=== PATIENT | female | born 1995 | race African-American/Black ===

== ENCOUNTER 2019-09-01 23:24 | Emergency (ER) | payer MEDICAID ==
[~2019-09-01] VITALS: Ht 172.7 cm; Wt 111.6 kg
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
--- NOTE | 2019-09-02 00:47 | NUR ---
PATIENT TO US
[2019-09-02 01:01] LABS: BASOPHILS # (AUTO) 0.14 x10^3/uL (0-0.1); BASOPHILS % (AUTO) 1 % (0-1); EOSINOPHILS # (AUTO) 0.05 x10^3/uL (0-0.4); EOSINOPHILS % (AUTO) 1 % (1-7); LYMPHOCYTES # (AUTO) 3.68 x10^3/uL (1-3.4); LYMPHOCYTES % (AUTO) 34 % (22-44); MD NO; MEAN CORPUSCULAR HEMOGLOBIN 28.3 pg (27.0-34.8); MEAN CORPUSCULAR HGB CONC 31.9 g/dL (32.4-35.8); MEAN CORPUSCULAR VOLUME 88.7 fL (80-100); MEAN PLATELET VOLUME 7.6 fL (7.4-10.4); MONOCYTES # (AUTO) 0.67 x10^3/uL (0.2-0.8); MONOCYTES % (AUTO) 6 % (2-9); NEUTROPHILS # (AUTO) 6.23 x10^3/uL (1.8-6.8); NEUTROPHILS % (AUTO) 58 % (42-75); PLATELET COUNT 452 x10^3/uL (130-400); RED BLOOD COUNT 4.44 x10^6/uL (3.82-5.3); RED CELL DISTRIBUTION WIDTH 14.9 % (9.6-15.2)
[2019-09-02 01:05] LABS: ALBUMIN 3.9 g/dL (3.4-5.0); ANION GAP 7 mmol/L (5-15); CALCIUM 9.1 mg/dL (8.5-10.1); CHLORIDE 108 mmol/L (98-107); CREATININE 0.87 mg/dL (0.55-1.02)
--- NOTE | 2019-09-02 01:22 | NUR ---
REPORT GIVEN TO JACKELINE BIANCHI. PLAN OF CARE DISCUSSED
--- NOTE | 2019-09-02 01:32 | NUR ---
Received report, assumed patient care. Patient resting comfortably, alert, oriented, awaiting ultrasound.
--- NOTE | 2019-09-02 01:54 | NUR ---
RN to bedside, patient behind curtain, already disconnected self from monitor. Vital signs stable per last check. Patient reports provider informed her of discharge. Awaiting paperwork.
[2019-09-02 02:03] VITALS: BP 114/84
== END 2019-09-02 02:04 | disposition home or self-care (01) ==
LOC: ED 09-02 01:09
DX: O20.0 Threatened abortion (principal)
CPT/HCPCS: 36415; 76801; 80048; 82040; 84702; 85025; 86901; 99284

== ENCOUNTER 2019-09-03 | Emergency (ER) | payer MEDICAID ==
[~2019-09-03] VITALS: Ht 172.7 cm; Wt 110.8 kg
--- NOTE | 2019-09-03 00:16 | NUR ---
Patient presents to ER c/o VB. Patient states she is ; her LMP was 06/15/19. She was here yesterday for spotting and had an US which showed approx 6 weeks . Today, she is having large amount of VB with clots. Patient is A1. Patient is in NAD. Respirations even and unlabored.
[2019-09-03] MEDS ORDERED: OXYcodone/APAP 5/325MG TABLET PO ONE (00:30)
[2019-09-03] MEDS ORDERED: OXYcodone/APAP 5/325MG TABLET ONE (00:59)
--- NOTE | 2019-09-03 01:16 | NUR ---
Medication admin per mar. Patient resting comfortably in [facility].
[2019-09-03 02:01] LABS: BASOPHILS # (AUTO) 0.05 x10^3/uL (0-0.1); BASOPHILS % (AUTO) 0 % (0-1); EOSINOPHILS # (AUTO) 0.12 x10^3/uL (0-0.4); EOSINOPHILS % (AUTO) 1 % (1-7); LYMPHOCYTES # (AUTO) 2.23 x10^3/uL (1-3.4); LYMPHOCYTES % (AUTO) 19 % (22-44); MD NO; MEAN CORPUSCULAR HGB CONC 32.5 g/dL (32.4-35.8); MEAN CORPUSCULAR VOLUME 89.3 fL (80-100); MEAN PLATELET VOLUME 7.6 fL (7.4-10.4); MONOCYTES # (AUTO) 0.79 x10^3/uL (0.2-0.8); MONOCYTES % (AUTO) 7 % (2-9); NEUTROPHILS # (AUTO) 8.87 x10^3/uL (1.8-6.8); NEUTROPHILS % (AUTO) 74 % (42-75); PLATELET COUNT 461 x10^3/uL (130-400); RED BLOOD COUNT 4.15 x10^6/uL (3.82-5.3); RED CELL DISTRIBUTION WIDTH 15.1 % (9.6-15.2)
[2019-09-03 02:13] LABS: ALANINE AMINOTRANSFERASE 16 U/L (12-78); ALBUMIN 3.5 g/dL (3.4-5.0); ANION GAP 8 mmol/L (5-15); CALCIUM 8.6 mg/dL (8.5-10.1); CHLORIDE 110 mmol/L (98-107); CREATININE 0.81 mg/dL (0.55-1.02)
[2019-09-03 02:29] LABS: ALKALINE PHOSPHATASE 56 U/L (45-117); BILIRUBIN,TOTAL 0.4 mg/dL (0.2-1.0); TOTAL PROTEIN 7.5 g/dL (6.4-8.2)
[2019-09-03 02:51] VITALS: BP 138/88
== END 2019-09-03 02:53 | disposition home or self-care (01) ==
LOC: ED 02:45
DX: O03.9 Complete or unspecified spontaneous abortion without complication (principal)
CPT/HCPCS: 36415; 80053; 84702; 85025; 99283

== ENCOUNTER 2020-04-24 08:52 | Inpatient (IN) | payer MEDICAID ==
[~2020-04-24] VITALS: Ht 172.7 cm; Wt 110.9 kg
[2020-04-24 09:06] VITALS: BP 122/76
[2020-04-24] MEDS ORDERED: PREN1TAB62 PO (09:12)
[2020-04-24] MEDS ORDERED: ASPI-515 PO (09:12)
[2020-04-24 09:19] LABS: MICROSCOPIC INDICATED
[2020-04-24 09:25] LABS: AMPHETAMINE SCREEN, URINE Negative (Negative); BARBITURATE SCREEN, URINE Negative (Negative); BENZODIAZEPINE SCREEN, URINE Negative (Negative); CANNABINOID SCREEN, URINE Positive (Negative); COCAINE SCREEN, URINE Negative (Negative); METHADONE SCREEN, URINE Negative (Negative); OPIATE SCREEN, URINE Negative (Negative)
[2020-04-24] MEDS: D5%-LACTATED RINGERS 1,000 ML IV SCH ×2 (10:43→18:30)
[2020-04-24 10:59] LABS: BASOPHILS # (AUTO) 0.05 x10^3/uL (0-0.1); BASOPHILS % (AUTO) 1 % (0-1); EOSINOPHILS # (AUTO) 0.07 x10^3/uL (0-0.4); EOSINOPHILS % (AUTO) 1 % (1-7); LYMPHOCYTES # (AUTO) 1.84 x10^3/uL (1-3.4); LYMPHOCYTES % (AUTO) 20 % (22-44); MD NO; MEAN CORPUSCULAR HEMOGLOBIN 28.4 pg (27.0-34.8); MEAN CORPUSCULAR HGB CONC 31.9 g/dL (32.4-35.8); MEAN CORPUSCULAR VOLUME 89.3 fL (80-100); MEAN PLATELET VOLUME 7.1 fL (7.4-10.4); MONOCYTES # (AUTO) 0.96 x10^3/uL (0.2-0.8); MONOCYTES % (AUTO) 10 % (2-9); NEUTROPHILS # (AUTO) 6.31 x10^3/uL (1.8-6.8); NEUTROPHILS % (AUTO) 68 % (42-75); PLATELET COUNT 290 x10^3/uL (130-400); RED BLOOD COUNT 3.94 x10^6/uL (3.82-5.3); RED CELL DISTRIBUTION WIDTH 15.4 % (9.6-15.2)
[2020-04-24 11:10] LABS: ALANINE AMINOTRANSFERASE 22 U/L (12-78); ALBUMIN 2.5 g/dL (3.4-5.0); ANION GAP 8 mmol/L (5-15); CALCIUM 8.7 mg/dL (8.5-10.1); CHLORIDE 114 mmol/L (98-107); CREATININE 0.68 mg/dL (0.55-1.02)
[2020-04-24 11:11] LABS: ALKALINE PHOSPHATASE 56 U/L (45-117); BILIRUBIN,TOTAL 0.2 mg/dL (0.2-1.0); TOTAL PROTEIN 6.5 g/dL (6.4-8.2)
[2020-04-24] MEDS ORDERED: OXYTOCIN 30U/ 0.9% NaCL 500ML 500 ML ONE (11:47)
[2020-04-24] MEDS ORDERED: OXYTOCIN 30U/ 0.9% NaCL 500ML 500 ML IV ONE ×2 (11:48→14:32)
[2020-04-24] MEDS ORDERED: OXYTOCIN 30U/ 0.9% NaCL 500ML 500 ML IV PRN ×2 (11:48→14:32)
[2020-04-24] MEDS ORDERED: MISOPROSTOL 200 MCG TABLET PR PRN (15:00)
[2020-04-24] MEDS: MISOPROSTOL 200 MCG TABLET VG SCH ×2 (15:00→21:00)
[2020-04-24] MEDS ORDERED: RHOGAM FROM BLOOD BANK 1 NOTE EA IM/IV PRN (15:00)
[2020-04-24] MEDS ORDERED: MISOPROSTOL 200 MCG TABLET ONE (17:26)
[2020-04-24] MEDS ORDERED: OXYcodone/APAP 5/325MG TABLET ONE (17:55)
[2020-04-24] MEDS ORDERED: FENTANYL PF 100 MCG/2ML IV PRN (18:00)
[2020-04-24] MEDS ORDERED: OXYcodone/APAP 10/325MG TABLET PO PRN (18:00)
[2020-04-24] MEDS ORDERED: OXYcodone/APAP 5/325MG TABLET PO PRN ×2 (18:00→22:00)
[2020-04-24] MEDS ORDERED: FENTANYL PF 100 MCG/2ML ONE ×2 (19:17→20:53)
[2020-04-24] MEDS: FENTANYL PF 100 MCG/2ML IVPush PRN ×2 (19:23→20:57)
[2020-04-24] MEDS ORDERED: MISOPROSTOL 100 MCG TABLET PO PRN (19:30)
[2020-04-24] MEDS ORDERED: MISOPROSTOL 100 MCG TABLET ONE (19:37)
[2020-04-24] MEDS ORDERED: OXYTOCIN 30U/ 0.9% NaCL 500ML 500 ML IV SCH ×2 (21:42)
[2020-04-24] MEDS ORDERED: OXYcodone IR 5MG TABLET PO PRN (22:00)
[2020-04-24] MEDS ORDERED: OXYTOCIN 10 UNITS/ML, 1ML IM PRN (22:00)
[2020-04-24] MEDS ORDERED: METHYLERGONOVINE 0.2 MG/ML IM PRN (22:00)
[2020-04-24] MEDS ORDERED: IBUPROFEN 800 MG TABLET PO PRN (22:00)
[2020-04-24] MEDS ORDERED: MAGNESIUM HYDROXIDE 8%, 30ML UDC PO PRN (22:00)
[2020-04-24] MEDS ORDERED: ACETAMINOPHEN 325 MG TABLET PO PRN ×2 (22:00)
[2020-04-24] MEDS ORDERED: ONDANSETRON 2MG/ML, 2ML IV PRN (22:00)
[2020-04-24] MEDS ORDERED: DOCUSATE 100 MG CAPSULE PO PRN (22:00)
[2020-04-24] MEDS ORDERED: SIMETHICONE 80 MG CHEW TAB PO PRN (22:00)
[2020-04-24] MEDS ORDERED: IBUP-1222 PO (23:40)
[2020-04-25 01:57] VITALS: BP 124/85
[2020-04-25] MEDS: D5%-LACTATED RINGERS 1,000 ML IV SCH (02:30)
[2020-04-25] MEDS: MISOPROSTOL 200 MCG TABLET VG SCH (03:00)
[2020-04-25 05:14] VITALS: BP 121/67
[2020-04-25 05:32] LABS: BASOPHILS # (AUTO) 0.05 x10^3/uL (0-0.1); BASOPHILS % (AUTO) 1 % (0-1); EOSINOPHILS # (AUTO) 0.01 x10^3/uL (0-0.4); EOSINOPHILS % (AUTO) 0 % (1-7); LYMPHOCYTES # (AUTO) 2.26 x10^3/uL (1-3.4); LYMPHOCYTES % (AUTO) 23 % (22-44); MD NO; MEAN CORPUSCULAR HEMOGLOBIN 28.4 pg (27.0-34.8); MEAN PLATELET VOLUME 7.4 fL (7.4-10.4); MONOCYTES # (AUTO) 0.78 x10^3/uL (0.2-0.8); MONOCYTES % (AUTO) 8 % (2-9); NEUTROPHILS # (AUTO) 6.91 x10^3/uL (1.8-6.8); NEUTROPHILS % (AUTO) 69 % (42-75); PLATELET COUNT 291 x10^3/uL (130-400); RED BLOOD COUNT 3.61 x10^6/uL (3.82-5.3)
[2020-04-25] MEDS ORDERED: PRENATAL VIT/IRON/FA 1 EACH TABLET PO SCH (09:00)
[2020-04-25 09:10] VITALS: BP 127/80
== END 2020-04-25 09:19 | disposition home or self-care (01) | DRG 805 ==
LOC: LDOP 08:52 → LDIP 10:02
PROVIDERS: ADMIT Obstetrics & Gynecology; ATTEND Obstetrics & Gynecology
PROC: 10E0XZZ Delivery of Products of Conception, External Approach (ICD-10-PCS; principal; 2020-04-24)
PROC: 3E0P7VZ Introduction of Hormone into Female Reproductive, Via Natural or Artificial Opening (ICD-10-PCS; 2020-04-24)
DX: O60.12X0 Preterm labor second trimester with preterm delivery second trimester, not applicable or unspecified (principal); O34.32 Maternal care for cervical incompetence, second trimester; Z37.0 Single live birth; O99.324 Drug use complicating childbirth; O62.3 Precipitate labor; F12.90 Cannabis use, unspecified, uncomplicated; O99.344 Other mental disorders complicating childbirth; F32.9 Major depressive disorder, single episode, unspecified; F41.9 Anxiety disorder, unspecified; Z83.3 Family history of diabetes mellitus; Z82.49 Family history of ischemic heart disease and other diseases of the circulatory system; Z88.6 Allergy status to analgesic agent; Z88.5 Allergy status to narcotic agent; Z3A.21 21 weeks gestation of pregnancy; Z20.828 Contact with and (suspected) exposure to other viral communicable diseases
CPT/HCPCS: 36415; J7121; 76815; 80053; 80307; 81001; 85025; 86850; 86900; 87086; 87635; 89060; G0378; J3010; J2590; Q0114

== ENCOUNTER 2020-06-15 13:46 | Emergency (ER) | payer MEDICAID ==
[~2020-06-15] VITALS: Ht 172.7 cm; Wt 111.0 kg
[~2020-06-15 13:46] MED LIST: ASPI-515 PO; IBUP-1222 PO; PREN1TAB62 PO
[2020-06-15 15:05] VITALS: BP 132/87
== END 2020-06-15 16:11 | disposition home or self-care (01) ==
LOC: ED 15:22
DX: J06.9 Acute upper respiratory infection, unspecified (principal); Z20.828 Contact with and (suspected) exposure to other viral communicable diseases; B34.9 Viral infection, unspecified
CPT/HCPCS: 36415; 71045; 87635; 99284